=== PATIENT | male | born 1990 | race Caucasian/White ===

== ENCOUNTER 2020-02-12 18:06 | Emergency (ER) | payer SELFPAY ==
[~2020-02-12] VITALS: Ht 165.1 cm; Wt 140.0 kg
[2020-02-12 18:12] VITALS: BP 144/65
[2020-02-12] MEDS ORDERED: ONDANSETRON ODT 4 MG TAB.RAPDIS. PO ONE (18:15)
[2020-02-12] MEDS ORDERED: IV NORMAL SALINE 1000ML BAG 1,000 ML IV ONE (18:15)
[2020-02-12] MEDS ORDERED: FAMOTIDINE 20 MG TABLET. PO ONE (18:15)
--- NOTE | 2020-02-12 18:32 | PHYS DOC ---
Past Medical History Past Medical History: Unknown Past Surgical History: Other Additional Past Surgical Histo: UNKNOWN Smoking Status: Current Every Day Smoker Alcohol Use: None General Adult EDM: Chief Complaint: DRUG ABUSE HPI: HPI: P history obtained from patient and EMS. Patient is a 21-year-old male with history of polysubstance abuse who presents with multiple complaints. EMS states that the patient admitted to them that he made up the complaints because police were interrogating him. Patient states he is unsure where he is coming from. He notes that he has used marijuana and methamphetamine recently. He is unsure of exactly when. He states that he told police that he was having some chest pain and left neck pain. He is unable to describe the quality or characteristics of the pain. Denies shortness of breath. Denies auditory visual hallucinations. Denies suicidal homicidal ideations. Denies any alcohol abuse today. States that he is quite cold from being outside. Denies vomiting. Denies abdominal pain. Denies back pain. Denies any unexplained weight loss. Denies fevers. Has no other complaints. Review of Systems: Review of Systems: Constitutional: Denies fever or chills. [] Eyes: Denies change in visual acuity. [] HENT: Denies nasal congestion or sore throat. [] Respiratory: Denies cough or shortness of breath. [] Cardiovascular: Positive for chest pain GI: Denies abdominal pain, nausea, vomiting, bloody stools or diarrhea. [] : Denies dysuria. [] Musculoskeletal: Denies back pain or joint pain. [] Integument: Denies rash. [] Neurologic: Denies headache, focal weakness or sensory changes. [] Endocrine: Denies polyuria or polydipsia. [] Lymphatic: Denies swollen glands. [] Psychiatric: Denies depression or anxiety. [] Heart Score: Risk Factors: Risk Factors: DM, Current or recent (<one month) smoker, HTN, HLP, family history of CAD, obesity. Risk Scores: Score 0 - 3: 2.5% MACE over next 6 weeks - Discharge Home Score 4 - 6: 20.3% MACE over next 6 weeks - Admit for Clinical Observation Score 7 - 10: 72.7% MACE over next 6 weeks - Early Invasive Strategies Current Medications: Current Medications Medications (Trade) Dose Ordered Sig/Dyan Start Time Stop Time Status Last Admin Dose Admin Famotidine (Pepcid) 20 mg 1X ONCE 02/12/20 18:15 02/12/20 18:17 DC Ondansetron HCl (Zofran Odt) 4 mg 1X ONCE 02/12/20 18:15 02/12/20 18:17 DC Sodium Chloride 1,000 ml @ 1,000 mls/hr 1X ONCE 02/12/20 18:15 02/12/20 19:14 Allergies: Allergies: Allergies Coded Allergies Type Severity Reaction Last Updated Verified Unable to Assess 02/12/20 No Physical Exam: PE: Constitutional: Well developed, well nourished, no acute distress, non-toxic appearance. [] HENT: Normocephalic, atraumatic, bilateral external ears normal, oropharynx moist, no oral exudates, nose normal. [] Eyes: PERRLA, EOMI, conjunctiva normal, no discharge. [] Neck: Normal range of motion, no tenderness, supple, no stridor. [] Cardiovascular:Heart rate regular rhythm, no murmur [] Lungs & Thorax: Bilateral breath sounds clear to auscultation [] Abdomen: soft, no tenderness, no masses, no pulsatile masses. [] Skin: Warm, dry, no erythema, no rash. [] Back: No tenderness, no CVA tenderness. [] Extremities: No tenderness, no cyanosis, no clubbing, ROM intact, no edema. [] Neurologic: Alert with intact cognitive function. No aphasia, dysarthria, or neglect. GCS 15. Pupils 3 mm briskly reactive b/l. No APD present. Cranial nerves 2-12 grossly intact; no facial asymmetry present, tongue midline, shoulder shrugging strength intact. Strength 5/5 and symmetric throughout. Light touch sensation intact throughout. Cerebellar testing appropriate without evidence of dysdiadochokinesia. DTR's 2+ in all 4 extremities. Negative pronator drift bilaterally. Gait normal Psychologic: Rapid and pressured speech. Tangential thought process. Current Patient Data: Labs: Laboratory Tests Test 02/12/20 18:26 White Blood Count 13.2 x10^3/uL Red Blood Count 3.90 x10^6/uL Hemoglobin 12.2 g/dL Hematocrit 36.8 % Mean Corpuscular Volume 94 fL Mean Corpuscular Hemoglobin 31 pg Mean Corpuscular Hemoglobin Concent 33 g/dL Red Cell Distribution Width 14.8 % Platelet Count 227 x10^3/uL Neutrophils (%) (Auto) 87 % Lymphocytes (%) (Auto) 7 % Monocytes (%) (Auto) 5 % Eosinophils (%) (Auto) 0 % Basophils (%) (Auto) 1 % Neutrophils # (Auto) 11.4 x10^3/uL Lymphocytes # (Auto) 1.0 x10^3/uL Monocytes # (Auto) 0.7 x10^3/uL Eosinophils # (Auto) 0.0 x10^3/uL Basophils # (Auto) 0.1 x10^3/uL Segmented Neutrophils % 86 % Lymphocytes % 8 % Monocytes % 4 % Eosinophils % 1 % Basophils % 1 % Platelet Estimate Adequate Sodium Level 140 mmol/L Potassium Level 4.0 mmol/L Chloride Level 101 mmol/L Carbon Dioxide Level 27 mmol/L Anion Gap 12 Blood Urea Nitrogen 35 mg/dL Creatinine 0.9 mg/dL Estimated GFR (Cockcroft-Gault) 99.8 Glucose Level 83 mg/dL Calcium Level 9.1 mg/dL Troponin I Quantitative < 0.017 ng/mL Ethyl Alcohol Level < 10 mg/dL Current Medications Medications (Trade) Dose Ordered Sig/Dyan Route PRN Reason Start Time Stop Time Status Last Admin Dose Admin Famotidine (Pepcid) 20 mg 1X ONCE PO 02/12/20 18:15 02/12/20 18:17 DC 02/12/20 18:46 Ondansetron HCl (Zofran Odt) 4 mg 1X ONCE PO 02/12/20 18:15 02/12/20 18:17 DC 02/12/20 18:46 Sodium Chloride 1,000 ml @ 1,000 mls/hr 1X ONCE IV 02/12/20 18:15 02/12/20 19:14 DC 02/12/20 18:47 Vital Signs: Vital Signs Date Time Temp Pulse Resp B/P (MAP) Pulse Ox O2 Delivery O2 Flow Rate FiO2 02/12/20 18:12 98.4 104 16 144/65 (91) 100 Room Air 98.4 EKG: EKG: EKG consistent with normal sinus rhythm. Ventricular rate of 90 bpm. Right axis noted. Intervals otherwise normal. Nonspecific interventricular con duction block present. Nonspecific EKG. [] Radiology/Procedures: Radiology/Procedures: [] Course & Med Decision Making: Course & Med Decision Making Pertinent Labs and Imaging studies reviewed. (See chart for details) Patient is a 21-year-old male who arrives via EMS for multiple complaints. He did confide to EMS and myself that there is any made of these complaints were made to evade police. Basic labs were obtained were grossly remarkable. Patient has declined to provide urine sample at this time. He is refusing chest x-ray. He is alert and oriented x3. Denies suicidal homicidal ideations. Denies any auditory visual hallucinations. At this time he is requesting discharge home. Overall I do feel this is reasonable. He continues to deny any symptoms. I did explain if he were to have symptoms and not allow us to perform a medical evaluation of it could be missing life or limb threatening illness. He did express understanding. He was counseled on substance abuse cessation. He does appear to be clinical sober and not under the influence of any substances. A&O x3. Able to ambulate without assistance. Has tolerated PO. Vitals remain stable. Precautions discussed and understood. Stable for discharge home. Donn Disclaimer: Donn Disclaimer: This electronic medical record was generated, in whole or in part, using a voice recognition dictation system. Departure Departure Impression: Primary Impression: Polysubstance abuse Disposition: 01 DC HOME SELF CARE/HOMELESS Condition: STABLE Patient Instructions: Methamphetamine Abuse, Complications IQRA CASTRO DO Feb 12, 2020 18:32
[2020-02-12 18:35] LABS: BASO # 0.1 x10^3/uL (0.0-0.2); BASO % 1 % (0-3); EOS % 0 % (0-3); HEMATOCRIT 36.8 % (39.0-53.0); HEMOGLOBIN 12.2 g/dL (13.0-17.5); LYMPH % 7 % (24-48); MEAN CORPUSCULAR HEMOGLOBIN 31 pg (25-35); MEAN CORPUSCULAR HGB CONC 33 g/dL (31-37); MEAN CORPUSCULAR VOLUME 94 fL (79-100); MONO # 0.7 x10^3/uL (0.0-1.1); MONO % 5 % (0-9); NEUT # 11.4 x10^3/uL (1.8-7.7); NEUT % 87 % (31-73); PLATELET COUNT 227 x10^3/uL (140-400); RED CELL DISTRIBUTION WIDTH 14.8 % (11.5-14.5); WHITE BLOOD COUNT 13.2 x10^3/uL (4.0-11.0)
[2020-02-12 18:44] LABS: CALCIUM 9.1 mg/dL (8.5-10.1); CREATININE 0.9 mg/dL (0.7-1.3); GFR 99.8
[2020-02-12 19:04] LABS: % BASOS 1 % (0-3); % EOS 1 % (0-5); % LYMPHS 8 % (24-48); % MONOS 4 % (0-10); % SEGS 86 % (35-66)
[2020-02-12 19:05] LABS: PLT ESTIMATE ADEQUATE (ADEQUATE)
== END 2020-02-12 20:54 | disposition home or self-care (01) ==
LOC: ER 18:06 → EDBD 18:06 → ER 20:54
DX: F19.10 Other psychoactive substance abuse, uncomplicated (principal); R07.89 Other chest pain; M54.2 Cervicalgia; F17.200 Nicotine dependence, unspecified, uncomplicated
CPT/HCPCS: 36415; 80048; 84484; 85007; 85025; 96360; 96361; 99284; G0480; J7030